=== PATIENT | female | born 1970 | race Caucasian/White ===

== ENCOUNTER 2018-05-13 12:21 | Day surgery (SDC) | payer BC ==
[~2018-05-13] VITALS: Ht 167.6 cm; Wt 61.3 kg
[~2018-05-13 12:21] MED LIST: LIDOCAINE 1%-EPI 1:100K, 30ML ONE; ROPIvacaine/PF 0.5%, 30 ML ONE; SCOPOLAMINE PATCH, 1.5MG PATCH.TD72 TD ONE
[2018-05-13] MEDS ORDERED: NAPR220C2 PO (12:54)
[2018-05-13] MEDS ORDERED: LEVO75TA5 PO (12:54)
[2018-05-13] MEDS ORDERED: LACTATED RINGERS 1,000 ML IV SCH (12:55)
[2018-05-13 12:57] VITALS: BP 117/61
[2018-05-13] MEDS ORDERED: FENTANYL PF 100 MCG/2ML ONE (12:58)
[2018-05-13] MEDS ORDERED: MIDAZOLAM 1 MG/ML, 2ML ONE (12:58)
[2018-05-13] MEDS ORDERED: LIDOCAINE-MPF 1%, 2ML INFIL ONE (13:00)
[2018-05-13] MEDS ORDERED: SCOPOLAMINE PATCH, 1.5MG PATCH.TD72 TD ONE ×2 (13:14→13:26)
[2018-05-13] MEDS ORDERED: CEFAZOLIN 1,000 MG ONE (13:26)
[2018-05-13] MEDS ORDERED: DEXAMETHASONE 4 MG/ML, 5ML ONE (13:26)
[2018-05-13] MEDS ORDERED: ONDANSETRON 2MG/ML, 2ML ONE (13:26)
[2018-05-13] MEDS ORDERED: PROPOFOL 10 MG/ML, 20ML ONE (13:26)
[2018-05-13] MEDS ORDERED: PROPOFOL 10 MG/ML, 50ML ONE (13:26)
[2018-05-13] MEDS ORDERED: ACETAMINOPHEN 325 MG TABLET PO PRN (13:30)
[2018-05-13] MEDS ORDERED: ONDANSETRON 2MG/ML, 2ML IV PRN (13:30)
[2018-05-13] MEDS ORDERED: FENTANYL PF 100 MCG/2ML IV PRN (13:30)
[2018-05-13] MEDS ORDERED: OXYcodone 5 MG/5 ML ORAL.SOL UDC PO PRN (13:30)
[2018-05-13] MEDS ORDERED: HYDROmorphone 2 MG/ML, 1ML IVPush PRN (13:30)
[2018-05-13 13:33] LABS: HCG UR SG 1.024 (1.003-1.030)
[2018-05-13] MEDS ORDERED: LIDOCAINE 1%-EPI 1:100K, 30ML INFIL ONE (13:35)
[2018-05-13] MEDS ORDERED: ROPIvacaine/PF 0.5%, 30 ML INFIL ONE (13:35)
[2018-05-13] MEDS ORDERED: MEPERIDINE/PF 100 MG/ML ONE (13:40)
[2018-05-13] MEDS ORDERED: ACETAMINOPHEN 650 MG/20.3 ML UDC ONE (14:47)
[2018-05-13] MEDS ORDERED: OXYcodone 5 MG/5 ML ORAL.SOL UDC ONE (14:48)
== END 2018-05-13 16:25 | disposition home or self-care (01) ==
LOC: OUT 12:21
PROVIDERS: ATTEND Orthopaedic Surgery
DX: S83.232A Complex tear of medial meniscus, current injury, left knee, initial encounter (principal); M94.262 Chondromalacia, left knee; Z88.0 Allergy status to penicillin; Z88.2 Allergy status to sulfonamides; Z79.899 Other long term (current) drug therapy; X58.XXXA Exposure to other specified factors, initial encounter; Y93.89 Activity, other specified; Y92.89 Other specified places as the place of occurrence of the external cause; Y99.8 Other external cause status
CPT/HCPCS: 29881; 81025; J0690; J1100; J2175; J2250; J2405; J2704; J2795; J3010; J3490